=== PATIENT | male | born 1990 | race African-American/Black ===

== ENCOUNTER 2016-05-21 11:15 | Emergency (ER) | payer SELFPAY ==
[2016-05-21] MEDS ORDERED: HYDROmorphone INJ* 1 MG/ML CARPUJECT SYRINGE IV ONE ×2 (11:42→13:07)
[2016-05-21] MEDS ORDERED: NS 0.9% 1000 ML* 1,000 ML IV ONE ×2 (11:42→12:09)
[2016-05-21] MEDS ORDERED: Ondansetron INJ* 2 MG/ML VIAL IV ONE (11:42)
[2016-05-21 11:49] LABS: Hematocrit 47 % (42-52); Hemoglobin 14.9 g/dl (14.0-18.0); Mean Corpuscular HGB Conc 32 g/dl (31-36); Mean Corpuscular Hemoglobin 27 pg (27-31); Mean Corpuscular Volume 86 fL (80-94); Mean Platelet Volume 8 um3 (7.4-10.4); Red Blood Count 5.43 10^6/ul (4.0-5.4); Red Cell Distribution Width 14 % (10.5-15); White Blood Count 17.6 10^3/ul (3.5-10.8)
[2016-05-21 12:05] LABS: ALT 28 U/L (7-52); AST 38 U/L (13-39); Albumin 4.5 g/dL (3.2-5.2); Alkaline Phosphatase 51 U/L (34-104); Anion Gap 10 mmol/L (2-11); BUN/Creatinine Ratio 20.2 (8-20); Blood Urea Nitrogen 19 mg/dL (6-24); C Reactive Protein < 1.00 mg/L (< 5.00); CO2 Carbon Dioxide 23 mmol/L (22-32); Calcium 10.1 mg/dL (8.6-10.3); Chloride 105 mmol/L (101-111); EGFR African American 126.8 (>60); EGFR Non-African American 98.6 (>60); Globulin 3.5 g/dL (2-4); Glucose 173 mg/dL (70-100); Lipase 33 U/L (11.0-82.0); Potassium 3.9 mmol/L (3.5-5.0); Sodium 138 mmol/L (133-145)
[2016-05-21] MEDS ORDERED: LORazepam INJ* 2 MG/ML 1 ML VIAL IV PUSH ONE (13:07)
[2016-05-21 14:31] LABS: Hematocrit 41 % (42-52); Hemoglobin 13.1 g/dl (14.0-18.0); Mean Corpuscular HGB Conc 32 g/dl (31-36); Mean Corpuscular Hemoglobin 28 pg (27-31); Mean Corpuscular Volume 86 fL (80-94); Mean Platelet Volume 8 um3 (7.4-10.4); Red Blood Count 4.72 10^6/ul (4.0-5.4); Red Cell Distribution Width 13 % (10.5-15); White Blood Count 15.9 10^3/ul (3.5-10.8)
--- NOTE | 2016-05-21 14:54 | ED ---
Haris Evans Benjamin, scribed for Eveline Holly MD on 05/21/16 at 1212 . Abdominal Pain/Male - HPI Summary HPI Summary: 25yo male c/o LLQ and umbilical pain along with nausea and vomiting. Pt reports of having similar pain x6 before in the spam of 7 years, each lasting for hours. Zofran helps with his symptoms. Pt is adopted, and has unknown FHx. Smokes marijuana and drinks alcohol occasionally, but no other drug use. - History of Current Complaint Chief Complaint: EDAbdPain Stated Complaint: ABD PAIN Time Seen by Provider: 05/21/16 11:41 Hx Obtained From: Patient, Other: - friend Onset/Duration: Sudden Onset, Lasting Hours, Still Present Severity Initially: Severe Severity Currently: Severe Pain Intensity: 9 Pain Scale Used: 0-10 Numeric Location: Discrete At: LLQ, Umbilical Radiates: No Aggravating Factor(s): Nothing Alleviating Factor(s): Nothing Associated Signs And Symptoms: Positive: Nausea, Vomiting - Allergies/Home Medications Allergies/Adverse Reactions: Allergies Allergy/AdvReac Type Severity Reaction Status Date / Time Morphine Allergy Hives Verified 12/05/15 15:59 PMH/Surg Hx/FS Hx/Imm Hx Endocrine/Hematology History: Denies: Hx Diabetes, Hx Thyroid Disease Cardiovascular History: Denies: Hx Congestive Heart Failure, Hx Hypertension Respiratory History: Reports: Hx Asthma - childhood that has resolved Denies: Hx Chronic Obstructive Pulmonary Disease (COPD) GI History: Denies: Hx Ulcer History: Denies: Hx Renal Disease - Surgical History Surgery Procedure, Year, and Place: MENISCUS SURGERY, HAND SURGERY - Immunization History Date of Tetanus Vaccine: Unk Date of Influenza Vaccine: Unk Infectious Disease History: No Infectious Disease History: Denies: Hx Hepatitis, Hx Human Immunodeficiency Virus (HIV), History Other Infectious Disease, Traveled Outside the US in Last 30 Days - Family History Known Family History: Positive: Cardiac Disease, Hypertension, Diabetes - Social History Lives: With Family Alcohol Use: Rare Substance Use Type: Reports: Marijuana Substance Use Comment - Amount & Last Used: occasional, none today Smoking Status (MU): Current Some Day Smoker Type: Cigarettes Review of Systems Constitutional: Negative Eyes: Negative ENT: Negative Cardiovascular: Negative Respiratory: Negative Positive: Abdominal Pain, Vomiting, Nausea. Negative: Diarrhea Genitourinary: Negative Musculoskeletal: Negative Skin: Negative Neurological: Negative Psychological: Normal All Other Systems Reviewed And Are Negative: Yes Physical Exam Triage Information Reviewed: Yes Vital Signs On Initial Exam: Initial Vitals BP 128/85 05/21/16 11:37 Vital Signs Reviewed: Yes Appearance: Positive: Well-Appearing, Well-Nourished, Pain Distress - moderate Skin: Positive: Warm, Skin Color Reflects Adequate Perfusion, Dry Head/Face: Positive: Normal Head/Face Inspection Eyes: Positive: EOMI, [place] ENT: Positive: Hearing grossly normal, Pharynx normal, TMs normal Neck: Positive: Supple, Nontender Respiratory/Lung Sounds: Positive: Clear to Auscultation, Breath Sounds Present Cardiovascular: Positive: RRR Abdomen Description: Positive: Soft, Other: - diffuse tenderness Bowel Sounds: Positive: Present Musculoskeletal: Positive: Strength/ROM Intact Neurological: Positive: Sensory/Motor Intact, Alert, Oriented to Person Place, Time, CN Intact II-III Psychiatric: Positive: Affect/Mood Appropriate - [place] Coma Scale Coma Scale Total: 15 Diagnostics - Vital Signs Vital Signs Temp Pulse Resp BP Pulse Ox 05/21/16 11:49 20 05/21/16 11:42 98.9 F 62 20 144/89 96 05/21/16 11:39 58 100 05/21/16 11:37 128/85 - Laboratory Lab Results: Lab Results 05/21/16 05/21/16 Range/Units 11:35 11:35 WBC 17.6 H (3.5-10.8) 10^3/ul RBC 5.43 H (4.0-5.4) 10^6/ul Hgb 14.9 (14.0-18.0) g/dl Hct 47 (42-52) % MCV 86 (80-94) fL MCH 27 (27-31) pg MCHC 32 (31-36) g/dl RDW 14 (10.5-15) % Plt Count 289 (150-450) 10^3/ul MPV 8 (7.4-10.4) um3 Neut % (Auto) 90.3 H (38-83) % Lymph % (Auto) 4.4 L (25-47) % Waldo % (Auto) 4.2 (1-9) % Eos % (Auto) 0.6 (0-6) % Baso % (Auto) 0.5 (0-2) % Absolute Neuts (auto) 15.9 H (1.5-7.7) 10^3/ul Absolute Lymphs (auto) 0.8 L (1.0-4.8) 10^3/ul Absolute Monos (auto) 0.7 (0-0.8) 10^3/ul Absolute Eos (auto) 0.1 (0-0.6) 10^3/ul Absolute Basos (auto) 0.1 (0-0.2) 10^3/ul Absolute Nucleated RBC 0 10^3/ul Nucleated RBC % 0 Sodium 138 (133-145) mmol/L Potassium 3.9 (3.5-5.0) mmol/L Chloride 105 (101-111) mmol/L Carbon Dioxide 23 (22-32) mmol/L Anion Gap 10 (2-11) mmol/L BUN 19 (6-24) mg/dL Creatinine 0.94 (0.67-1.17) mg/dL Est GFR ( Amer) 126.8 (>60) Est GFR (Non-Af Amer) 98.6 (>60) BUN/Creatinine Ratio 20.2 H (8-20) Glucose 173 H (70-100) mg/dL Calcium 10.1 (8.6-10.3) mg/dL Total Bilirubin 0.80 (0.2-1.0) mg/dL AST 38 (13-39) U/L ALT 28 (7-52) U/L Alkaline Phosphatase 51 (34-104) U/L Troponin I 0.00 (<0.04) ng/mL C-Reactive Protein < 1.00 (< 5.00) mg/L Total Protein 8.0 (6.4-8.9) g/dL Albumin 4.5 (3.2-5.2) g/dL Globulin 3.5 (2-4) g/dL Albumin/Globulin Ratio 1.3 (1-3) Lipase 33 (11.0-82.0) U/L Result Diagrams: 05/21/16 14:15 05/21/16 11:35 Lab Statement: Any lab studies that have been ordered have been reviewed, and results considered in the medical decision making process. Abdominal Pain Fem Course/Dx - Course Course Of Treatment: 25 yo male who reports 6 x yearly episodes of intractable vomiting, first set of labs with high wbc and lactate, repeated after 2l of fluids and much better. initial abd exam diffuse tenderness now none. Pt feels much better home with meds - Diagnoses Provider Diagnoses: Intractable vomiting Discharge - Discharge Plan Condition: Stable Disposition: HOME The documentation as recorded by the Haris willett Benjamin accurately reflects the service I personally performed and the decisions made by me, Eveline Holly MD.
[2016-05-21 15:12] VITALS: BP 141/87
== END 2016-05-21 15:11 | disposition home or self-care (01) ==
LOC: ED 11:15
DX: R10.9 Unspecified abdominal pain (principal); R11.2 Nausea with vomiting, unspecified; Z72.0 Tobacco use
CPT/HCPCS: 36415; 80053; 83605; 83690; 84484; 85025; 86140; 96374; 96375; 99284; J1170; J2060; J2405

== ENCOUNTER 2017-02-10 16:32 | Inpatient (IN) | payer MEDICAID, OTHER ==
[2017-02-10 17:28] LABS: Urine Bilirubin Negative (Negative); Urine Glucose Negative (Negative); Urine Nitrite Negative (Negative)
[2017-02-10 17:31] LABS: Hematocrit 49 % (42-52); Hemoglobin 16.2 g/dl (14.0-18.0); Mean Corpuscular HGB Conc 33 g/dl (31-36); Mean Corpuscular Hemoglobin 29 pg (27-31); Mean Corpuscular Volume 88 fL (80-94); Mean Platelet Volume 8 um3 (7.4-10.4); Red Blood Count 5.54 10^6/ul (4.0-5.4); Red Cell Distribution Width 12 % (10.5-15); White Blood Count 7.6 10^3/ul (3.5-10.8)
[2017-02-10 17:45] LABS: Benzodiazepine Urine Screen None Detected (None Detect)
[2017-02-10 17:48] LABS: ALT 16 U/L (7-52); AST 18 U/L (13-39); Albumin 4.7 g/dL (3.2-5.2); Alkaline Phosphatase 42 U/L (34-104); Anion Gap 4 mmol/L (2-11); BUN/Creatinine Ratio 13.8 (8-20); Blood Urea Nitrogen 15 mg/dL (6-24); CO2 Carbon Dioxide 31 mmol/L (22-32); Calcium 9.9 mg/dL (8.6-10.3); Chloride 103 mmol/L (101-111); EGFR Non-African American 82.4 (>60); Globulin 3.3 g/dL (2-4); Glucose 77 mg/dL (70-100); Potassium 3.7 mmol/L (3.5-5.0); Sodium 138 mmol/L (133-145)
[2017-02-10 18:09] LABS: Acetaminophen < 15 mcg/mL; Alcohol < 10 mg/dL (<10); Salicylate < 2.50 mg/dL (<30)
[2017-02-10 18:25] LABS: TSH (Thyroid Stimulating Horm) 1.57 mcIU/mL (0.34-5.60)
[2017-02-11] MEDS ORDERED: Al Hydrox/Mg Hydrox/Simet LIQ* 30 ML UDC PO PRN (00:15)
[2017-02-11] MEDS ORDERED: Acetaminophen TAB* 325 MG PO PRN (00:15)
[2017-02-11] MEDS ORDERED: hydrOXYzine HCL TAB* 25 MG PO PRN (00:16)
[2017-02-11] MEDS: Vitamin THERAPEUTIC TAB PO SCH (09:47)
[2017-02-11] MEDS: clonazePAM TAB(*) 0.5 MG PO SCH (17:05)
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
[2017-02-11] MEDS: traZODone TAB* 50 MG TAB PO SCH (20:51)
[2017-02-11] MEDS ORDERED: traZODone TAB* 50 MG TAB PO PRN (21:00)
[2017-02-12] MEDS: clonazePAM TAB(*) 0.5 MG PO SCH ×2 (09:54→16:24)
[2017-02-12] MEDS: DULoxetine DR CAP* 30 MG CAP.DR PO SCH (09:55)
[2017-02-12] MEDS: Vitamin THERAPEUTIC TAB PO SCH (09:55)
--- NOTE | 2017-02-12 12:03 | PN ---
Plan - Plan Treatment Plan: Name: RADAH LORD Birthdate: 1990 [id number] Medications: Current Medications Acetaminophen (Tylenol Tab*) 650 mg PO Q4H PRN PRN Reason: PAIN or TEMP > 101 F Al Hydrox/Mg Hydrox/Simethicone (Maalox Plus*) 30 ml PO Q4H PRN PRN Reason: INDIGESTION Clonazepam (Klonopin Tab(*)) 0.5 mg PO BID@ [facility] Last Admin: 02/12/17 09:54 Dose: 0.5 mg Duloxetine HCl (Cymbalta Cap*) 30 mg PO DAILY [facility] Last Admin: 02/12/17 09:55 Dose: 30 mg Hydroxyzine HCl (Atarax Tab*) 25 mg PO Q6H PRN PRN Reason: ANXIETY Last Admin: 02/11/17 09:47 Dose: 25 mg Multivitamins (Theragran Tab*) 1 tab PO DAILY [facility] Last Admin: 02/12/17 09:55 Dose: 1 tab Trazodone HCl (Desyrel Tab*) 50 mg PO BEDTIME [facility] Last Admin: 02/11/17 20:51 Dose: 50 mg Trazodone HCl (Desyrel Tab*) 50 mg PO BEDTIME PRN PRN Reason: PERSISTENT INSOMNIA
[2017-02-12] MEDS: traZODone TAB* 50 MG TAB PO SCH (21:32)
[2017-02-13 08:59] VITALS: BP 121/62
[2017-02-13] MEDS: DULoxetine DR CAP* 30 MG CAP.DR PO SCH (10:09)
[2017-02-13] MEDS: Vitamin THERAPEUTIC TAB PO SCH (10:09)
[2017-02-13] MEDS: clonazePAM TAB(*) 0.5 MG PO SCH (10:09)
--- NOTE | 2017-02-13 10:57 | DCNOTE ---
Subjective - Subjective Service Types: [id number] Hosp DC Day Mgmt complex over 30 min Discharge Planning - Discharge Planning Medications: Current Medications Acetaminophen (Tylenol Tab*) 650 mg PO Q4H PRN PRN Reason: PAIN or TEMP > 101 F Last Admin: 02/12/17 21:32 Dose: 650 mg Al Hydrox/Mg Hydrox/Simethicone (Maalox Plus*) 30 ml PO Q4H PRN PRN Reason: INDIGESTION Clonazepam (Klonopin Tab(*)) 0.5 mg PO BID@ [facility] Last Admin: 02/13/17 10:09 Dose: 0.5 mg Duloxetine HCl (Cymbalta Cap*) 30 mg PO DAILY [facility] Last Admin: 02/13/17 10:09 Dose: 30 mg Hydroxyzine HCl (Atarax Tab*) 25 mg PO Q6H PRN PRN Reason: ANXIETY Last Admin: 02/11/17 09:47 Dose: 25 mg Multivitamins (Theragran Tab*) 1 tab PO DAILY [facility] Last Admin: 02/13/17 10:09 Dose: 1 tab Trazodone HCl (Desyrel Tab*) 50 mg PO BEDTIME [facility] Last Admin: 02/12/17 21:32 Dose: 50 mg Trazodone HCl (Desyrel Tab*) 50 mg PO BEDTIME PRN PRN Reason: PERSISTENT INSOMNIA Discharge Planning: Prescriptions provided for discharge [] Yes [] No Follow up care details as per social work arrangements. Patient response to discharge plan: [] eager for discharge [] agreeable with discharge plan [] ambivalent about discharge [] disagrees with discharge today
== END 2017-02-13 13:00 | disposition home or self-care (01) | DRG 754 ==
LOC: ED 16:32 → BSU 21:52
PROVIDERS: ADMIT Psychiatry & Neurology Psychiatry; ATTEND Psychiatry & Neurology Psychiatry
DX: F32.9 Major depressive disorder, single episode, unspecified (principal); F41.0 Panic disorder [episodic paroxysmal anxiety]; F43.10 Post-traumatic stress disorder, unspecified; G47.00 Insomnia, unspecified; Z87.820 Personal history of traumatic brain injury
CPT/HCPCS: 36415; 80053; 80307; 80320; 80329; 81003; 84443; 85025; A9270-GY; G0480

== ENCOUNTER 2017-08-25 19:58 | Emergency (ER) | payer MEDICAID, OTHER ==
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
[2017-08-25 23:04] VITALS: BP 134/84
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
== END 2017-08-25 23:04 | disposition home or self-care (01) ==
LOC: ED 19:58
DX: M25.511 Pain in right shoulder (principal); F41.9 Anxiety disorder, unspecified; F43.10 Post-traumatic stress disorder, unspecified; Z87.81 Personal history of (healed) traumatic fracture; Z88.5 Allergy status to narcotic agent; Z72.0 Tobacco use
CPT/HCPCS: 99282

== ENCOUNTER → 2018-01-28 | Emergency (ER) | payer SELFPAY ==
[~2018-01-28] MED LIST: Ketorolac INJ* 30 MG/ML 1 ML VIAL IV ONE; Ondansetron INJ* 2 MG/ML VIAL IV ONE
--- NOTE | 2018-01-28 19:58 | ED ---
Abdominal Pain/Male - HPI Summary HPI Summary: A 27 y/o M presents to ED with c/o diffuse abd pain and most severe in RUQ, onset two days ago. Pt has had intermittent episodes of chronic abd pain since he was 18 years old, without a specific diagnosis. Last recurrence was approx two months ago. His abd pain at onset was beyond 10/10. At bedside, he says the pain fluctuates around 8-9 out of 10. Per partner, pt was cycling vomiting and sleeping for past few days. Associated sx: low-grade fever, weakness, dizziness , nauseous. Denies hematuria, dysuria, testicular pain, hematemesis, diarrhea. Previously, he's taken chewable nausea medicine which helped, but does not remember what it was. (suspect ondansetron) PMHx: ulcers. No previous hx kidney stones. Pt does not have a PCP. Denies daily medications. Vitals at bedside: HR: 78 bpm, BP: 161/89. Home Medications Medication Instructions Recorded Confirmed Type Trazodone HCl 100 mg PO BEDTIME PRN 01/28/18 History - History of Current Complaint Chief Complaint: EDAbdPain Stated Complaint: ABD PAIN/NAUSEA/VOMITING Hx Obtained From: Patient, Family/Title Search Manager - significant other (Anayeli) Onset/Duration: Gradual Onset, Lasting Days - two, Still Present Timing: Constant Severity Initially: Severe Severity Currently: Severe Pain Intensity: 10 Pain Scale Used: 0-10 Numeric Location: Diffuse, Discrete At: RUQ - worse Radiates: No Character: Sharp Aggravating Factor(s): Nothing Alleviating Factor(s): Nothing Associated Signs And Symptoms: Positive: Fever, Dizzy, Nausea, Vomiting, Other - pos:weakness. neg: hematemesis, testicular pain, diarrhea. Negative: Urinary Symptoms - Allergies/Home Medications Allergies/Adverse Reactions: Allergies Allergy/AdvReac Type Severity Reaction Status Date / Time morphine Allergy Hives Verified 01/28/18 17:57 Home Medications: Home Medications Trazodone HCl 100 mg PO BEDTIME PRN 01/28/18 [History Confirmed 01/28/18] PMH/Surg Hx/FS Hx/Imm Hx Previously Healthy: No - insomnia Endocrine/Hematology History: Denies: Hx Anticoagulant Therapy, Hx Blood Disorders, Hx Diabetes, Hx Thyroid Disease, Hx Unexplained Bleeding Cardiovascular History: Denies: Hx Congestive Heart Failure, Hx Hypertension Respiratory History: Reports: Hx Asthma - childhood that has resolved Denies: Hx Chronic Obstructive Pulmonary Disease (COPD) GI History: Denies: Hx Ulcer History: Denies: Hx Renal Disease Musculoskeletal History: Denies: Hx Arthritis, Hx Back Problems Sensory History: Denies: Hx Contacts or Glasses, Hx Hearing Aid Opthamlomology History: Denies: Hx Contacts or Glasses Neurological History: Reports: Other Neuro Impairments/Disorders - TBI twice, 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 Psychiatric History: Reports: Hx Anxiety, Hx Post Traumatic Stress Disorder Denies: Hx Eating Disorder, Hx of Violent Episodes Against Others - Surgical History Surgery Procedure, Year, and Place: MENISCUS SURGERY, HAND SURGERY - Immunization History Date of Tetanus Vaccine: Unk Date of Influenza Vaccine: Unk Infectious Disease History: No Infectious Disease History: Denies: Hx Hepatitis, Hx Human Immunodeficiency Virus (HIV), History Other Infectious Disease, Traveled Outside the [place] in Last 30 Days - Family History Known Family History: Positive: Unknown - Adopted / foster care system - Social History Lives: Alone Alcohol Use: Rare Hx Substance Use: Yes Substance Use Type: Reports: Marijuana Substance Use Comment - Amount & Last Used: occasional Hx Tobacco Use: Yes Smoking Status (MU): Current Some Day Smoker Type: Cigarettes Amount Used/How Often: has used tobacco products in the last 30 days Review of Systems Positive: Fever ENT: Negative Cardiovascular: Negative Respiratory: Negative Positive: Abdominal Pain, Vomiting, Other - neg: hematemesis. Negative: Nausea Positive: other - neg: testicular pain. Negative: dysuria, hematuria Musculoskeletal: Negative Skin: Negative Neurological: Other - pos: dizziness Positive: Weakness Psychological: Normal All Other Systems Reviewed And Are Negative: Yes Physical Exam - Summary Physical Exam Summary: Appearance: Well-appearing, severe pain distress, thin Skin: Warm, color reflects adequate perfusion, dry Head: Normal Head/Face inspection, atraumatic Eyes: Conjunctiva clear ENT: Normal inspection Neck: Supple, no nodes, no JVD Respiratory: Lungs clear, normal breath sounds, no respiratory distress Cardio: RRR, No murmur, pulses normal, brisk capillary refill Abdomen: Soft, tenderness to RUQ, wretching, non distended, no masses, no guarding, no rebound Bowel sounds: Present and distant Musculoskeletal: Strength Intact/ROM intact, no calf tenderness, no edema. Psychological: Normal Neuro: Alert, muscle tone normal, no focal deficit Triage Information Reviewed: Yes Vital Signs On Initial Exam: Initial Vitals Temp Pulse Resp BP Pulse Ox 100.6 F 73 18 120/77 100 01/28/18 17:52 01/28/18 17:52 01/28/18 17:52 01/28/18 17:52 01/28/18 17:52 Vital Signs Reviewed: Yes Diagnostics - Vital Signs Vital Signs Temp Pulse Resp BP Pulse Ox 01/28/18 19:55 99.9 F 01/28/18 17:52 100.6 F 73 18 120/77 100 - Laboratory Result Diagrams: 01/28/18 20:34 01/28/18 20:34 Lab Statement: Any lab studies that have been ordered have been reviewed, and results considered in the medical decision making process. - Radiology CXR Radiology Interpretation Completed By: ED Physician Summary of Radiographic Findings: NAD. - Ultrasound No standard instances Ultrasound Interpretation Completed By: Radiologist Summary of Ultrasound Findings: IMPRESSION: No sonographic findings to correlate with patient's symptomatology. ED provider has reviewed this report. - EKG 2028 Cardiac Rate: NL - 64bpm EKG Rhythm: Sinus Rhythm EKG Comparison: No Significant Change - from 09/01/09. Summary of EKG Findings: Normal ACVT, prolonged IVCT (non-specific 113), prolonged QTc (574). No significant change from EKG on 09/01/09. Re-Evaluation - Re-Evaluation First Eval Re-Evaluation Time: 22:50 Change: Improved Comment: Pt states pain is almost gone. Lying comfortably on the stretcher. No further vomiting or wretching in the ED. Discussed diff dx and follow up. Given lab and US results. Abdominal Pain Fem Course/Dx - Course Course Of Treatment: Pt is a 27 y/o M presenting with diffuse abd pain and worst in RUQ onset two days ago. PMHx: chronic abd pain since 18 y/o. Associated sx: vomiting, low-grade fever, weakness, dizziness, nauseous. Denies hematuria, dysuria, testicular pain, hematemesis. Gallbladder U/S was showed no acute findings. CXR shows no acute dz. EKG shows NSR with normal ACVT, prolonged IVCT (non-specific 113), prolonged QTc (574). Lab results show Neut % is elevated; INR: 1.06; Glucose 105; depressed Potassium and CO2. Pt given fluids, toradol and zofran in ED. Allergies noted. Pt medications reviewed this visit. Pt is discharged with an RX for zofran ODT, and advised to get established with a PCP and to use [facility] if needed. Pt asks for a diet for gastritis, so it is provided. - Diagnoses Differential Diagnosis/HQI/PQRI: Appendicitis, Gall Bladder Disease, Pancreatitis, Ureteral Stone, Other - cyclic vomiting syndrome, cannabis hyperemesis Provider Diagnoses: Tobacco abuse disorder, Epigastric abdominal pain, Hematuria, microscopic, [place] syndrome, Vomiting alone, Prolonged QT interval syndrome Discharge - Sign-Out/Discharge Documenting (check all that apply): Patient Departure - DC - Discharge Plan Condition: Stable Disposition: HOME Prescriptions: Ondansetron ODT TAB* [Zofran 4 MG Odt TAB*] 4 mg PO Q6H PRN #12 tab.odt PRN Reason: Vomiting Patient Education Materials: Diet for Stomach Ulcers and Gastritis (ED), Acute Abdominal Pain (ED), Epigastric Pain (ED) Referrals: [facility] [Outside] - 1 Day [facility] PHYSICIAN REFERRAL [Outside] - As Soon As Possible Additional Instructions: Your tests tonight did not show any serious abnormalities. You should follow up with the [facility] and the [facility] referral number to get established with a primary care provider for further evaluation as needed. Return to the ER if you have any new or worsening symptoms. - Billing Disposition and Condition Condition: STABLE Disposition: Home - Attestation Statements Document Initiated by Pattie: Yes Documenting Scribe: Rosa Lindo Provider For Whom Pattie is Documenting (Include Credential): Dr. Hodan Cifuentes MD Scribe Attestation: Rosa Evans, scribed for Dr. Hodan Cifuentes MD on 02/02/18 at 2236. Scribe Documentation Reviewed: Yes Provider Attestation: The documentation as recorded by the Rosa willett accurately reflects the service I personally performed and the decisions made by me, Dr. Hodan Cifuentes MD
[2018-01-28 20:44] LABS: ABS Basophils 0 10^3/ul (0-0.2); ABS Eosinophils 0 10^3/ul (0-0.6); ABS Lymphocytes 0.6 10^3/ul (1.0-4.8); ABS Monocytes 0.8 10^3/ul (0-0.8); ABS Neutrophils 9.3 10^3/ul (1.5-7.7); ABS Nucleated RBC 0 10^3/ul; Eosinophil % 0.1 % (0-6); Hematocrit 46 % (42-52); Hemoglobin 15.7 g/dl (14.0-18.0); Lymphocyte % 5.3 % (25-47); Mean Corpuscular HGB Conc 34 g/dl (31-36); Mean Corpuscular Hemoglobin 30 pg (27-31); Mean Corpuscular Volume 88 fL (80-94); Nucleated Red Blood Cells % 0.1; Platelet Count 243 10^3/ul (150-450); Red Blood Count 5.24 10^6/ul (4.00-5.40); Red Cell Distribution Width 12 % (10.5-15); White Blood Count 10.6 10^3/ul (3.5-10.8)
--- NOTE | 2018-01-28 20:49 | RAD ---
EXAM: US Abdomen Limited, Right Upper Quadrant EXAM DATE/TIME: 01/28/2018 8:36 PM CLINICAL HISTORY: 27 years old, male; Pain and signs and symptoms; Vomiting; Abdominal pain; Generalized; Additional info: Ruq pain TECHNIQUE: Real-time ultrasound of the abdomen with image documentation. Examination was focused on the right upper quadrant. COMPARISON: GB US GALL BLADDER 01/25/2013 9:13 PM FINDINGS: Liver: Normal liver echogenicity and size with no focal lesions. Normal hepatopetal portal vein flow. Gallbladder: No gallstones, wall thickening, pericholecystic fluid, or sonographic Vaughn's sign. Common bile duct: CBD measures 0.3 cm. Pancreas: No pancreatic ductal dilation or focal lesions. Right kidney: Right kidney measures 9.0 x 4.9 x 4.0 cm (92 cc). No solid cortical lesions, calculi, or pelvocaliectasis. Aorta: Nonobstructive normal caliber aorta. Inferior vena cava: Patent IVC. IMPRESSION: No sonographic findings to correlate with patient's symptomatology. To contact [facility] with a general question: Operations Center - [phone] For direct physician to physician contact: Physician Hotline - [phone] [facility] ([facility] Facility ID #[id number])
[2018-01-28 20:50] LABS: INR 1.06 (0.77-1.02)
[2018-01-28 21:02] LABS: EGFR Non-African American 89.3 (>60)
[2018-01-28] MEDS: NS 0.9% 1000 ML* 2,000 ML IV SCH ×2 (21:08→21:09)
[2018-01-28 23:10] LABS: Urine Appearance Cloudy; Urine Blood Negative (Negative); Urine Color Yellow; Urine Ketones 2+ (Negative); Urine Protein 1+(30 mg/dL) (Negative); Urine Red Blood Cell 3+(>10/hpf) (Absent); Urine Specific Gravity 1.032 (1.010-1.030); Urine Urobilinogen Negative (Negative); Urine White Blood Cell Trace(0-5/hpf) (Absent)
[2018-01-29 00:04] VITALS: BP 145/86
--- NOTE | 2018-01-29 07:58 | RAD ---
HISTORY: abd pain, vomiting COMPARISONS: September 01, 2009 VIEWS: 1: frontal AP view of the chest at 8:45 PM FINDINGS: LINES AND TUBES: None. CARDIOMEDIASTINAL SILHOUETTE: The cardiomediastinal silhouette is normal for portable technique. PLEURA: The costophrenic angles are sharp. No pleural abnormalities are noted. LUNG PARENCHYMA: The lungs are clear. ABDOMEN: The upper abdomen is clear. There is no subphrenic gas. BONES AND SOFT TISSUES: No bone or soft tissue abnormalities are noted. IMPRESSION: NO ACTIVE CARDIOPULMONARY DISEASE. R0
== END | disposition home or self-care (01) ==
LOC: ED 17:41
DX: R10.13 Epigastric pain (principal); R31.29 Other microscopic hematuria; E80.4 Gilbert syndrome; Z88.5 Allergy status to narcotic agent; Z72.0 Tobacco use
CPT/HCPCS: 36415; 71045; 76705; 80053; 81003; 81015; 82150; 82550; 83605; 83690; 83735; 84484; 85025; 85610; 86140; 87077; 87086; 93005; 96361; 96374; 96375; 99283; J1885; J2405

== ENCOUNTER 2018-03-02 14:41 | Emergency (ER) | payer OTHER ==
--- OUTSIDE RECORDS SUMMARY | 2018-03-02 14:53 | XMS REPORT ---
:1990 External Reference #:[id number] Author Organization [employer] Address [address] [place] [id number] Phone [phone] Care Team Providers Name Role Phone Bria Godinez DO Care Team Information Field Health Officer Unavailable Payers Type Date Identification Numbers Payment Provider Subscriber Commercial PayID: [id number] Juanpabloneil Galvez [address] [place] [address] Problems Description No Information Family History Date Family Member(s) Problem(s) Comments Siblings None Social History Type Date Description Comments Marital Status Single Lives With Alone Occupation Unemployed ETOH Use Currently consumes alcohol ETOH Use Currently consumes alcohol almost every weekend Smoking Patient was a smoker, current status is unknown Recreational Drug Use Denies Drug Use Smoking Smoker, sometimes depends on the day Daily Caffeine Consumes on average 1 liter of iced tea per day Exercise Type/Frequency Exercises regularly Allergies, Adverse Reactions, Alerts Date Description Reaction Status Severity Comments 02/02/2018 Morphine active 02/02/2018 Seasonal active Medications Medication Date Status Form Strength Qnty SIG Indications Ordering Provider Omeprazole Active Capsules DR 20mg 30caps 1 by G43.A0 Bria 018 mouth DO Herbert every day No Active Hx Unknown Medications 018 - 018 Vital Signs Date Vital Result Comment 02/02/2018 Height 71.5 inches 5'11.50" Weight 146.50 lb Heart Rate 68 /min BP Systolic 128 mmHg BP Diastolic 72 mmHg Body Temperature 98.0 F BMI (Body Mass Index) 20.1 kg/m2 Results Description No Information Procedures Description No Information Plan of Care Future Appointment(s):03/08/2018 11:40 am - Bria Godinez DO at [facility]02/02/2018 - Bria Senner, DOG43.A0 Cyclical vomiting , not intractableNew Medication:Omeprazole 20 mgNew Xrays:NM Gastric Emptying StudyFollow up:come back in a domceS42.1 Generalized anxiety disorder
[2018-03-02 15:05] VITALS: BP 110/71
--- NOTE | 2018-03-02 15:06 | UC ---
Throat Pain/Nasal Gutierrez HPI - HPI Summary HPI Summary: 27 yo male presents with sore throat. He tells me that over the past 2 weeks he has had a sore throat. About 1 week ago his friend was dx'd with strep and prescribed augmentin - pt took two pills of this and felt better for a few days , but his sore throat has returned. Pain with swallowing. He is able to eat and drinking. Denies fever, chills, sinus symptoms, cough, SOB, chest pain, n/v. - History of Current Complaint Chief Complaint: UCRespiratory Stated Complaint: SORE THROAT, AND SINUS CONGESTION Time Seen by Provider: 03/02/18 15:06 Hx Obtained From: Patient Onset/Duration: Gradual Onset Severity: Severe Pain Intensity: 10 Pain Scale Used: 0-10 Numeric - Allergies/Home Medications Allergies/Adverse Reactions: Allergies Allergy/AdvReac Type Severity Reaction Status Date / Time morphine Allergy Hives Verified 03/02/18 15:05 Home Medications: Home Medications Homeopathic 1 drop PO DAILY 03/02/18 [History] clonazePAM [Klonopin] 0.5 mg PO DAILY PRN 03/02/18 [History Confirmed 03/02/18] PMH/Surg Hx/FS Hx/Imm Hx Psychological History: Anxiety, Post Traumatic Stress Disorder Other History Of: Negative For: Anticoagulant Therapy - Surgical History Surgical History: Yes Surgery Procedure, Year, and Place: MENISCUS SURGERY, HAND SURGERY - Family History Known Family History: Positive: Cardiac Disease, Hypertension, Diabetes - Social History Occupation: Employed Full-time Lives: With Family Alcohol Use: Occasionally Substance Use Type: Marijuana Substance Use Comment - Amount & Last Used: occasional Smoking Status (MU): Light Every Day Tobacco Smoker Type: Cigarettes Amount Used/How Often: has used tobacco products in the last 30 days Have You Smoked in the Last Year: Yes - Pt uses mariuana wrapped around tobacco - Immunization History Most Recent Influenza Vaccination: unk Most Recent Pneumonia Vaccination: up to date Review of Systems All Other Systems Reviewed And Are Negative: Yes Constitutional: Positive: Negative Skin: Positive: Negative Eyes: Positive: Negative ENT: Positive: Sore Throat Respiratory: Positive: Negative Cardiovascular: Positive: Negative Gastrointestinal: Positive: Negative Neurovascular: Positive: Negative Neurological: Positive: Negative Psychological: Positive: Negative Physical Exam - Summary Physical Exam Summary: GENERAL: NAD. WDWN. No pain distress. SKIN: No rashes, sores, lesions, or open wounds. HEENT: Head: AT/NC Eyes: Conjunctiva clear without inflammation or discharge. Ears: Hearing grossly normal. TMs intact, no bulging, erythema, or edema. Nose: Nasal mucosa pink and moist. NTTP maxillary and frontal sinus. Throat: Posterior oropharynx moderate erythema and 2+ tonsillar enlargement. No exudates. Uvula midline. No hoarse voice or muffled voice. NECK: Supple. Mild TTP tonsillar LAD. CHEST: CTAB. No r/r/w. No accessory muscle use. Breathing comfortably and in no distress. CV: RRR. Without m/r/g. Pulses intact. Cap refill <2seconds NEURO: Alert. PSYCH: Age appropriate behavior. Triage Information Reviewed: Yes Vital Signs: Initial Vital Signs Temp 98.4 F 03/02/18 14:56 Pulse 83 03/02/18 14:56 Resp 18 03/02/18 14:56 BP 110/71 03/02/18 14:56 Pulse Ox 99 03/02/18 14:56 Laboratory Tests 03/02/18 15:23 Group A Strep Rapid Positive A Vital Signs Reviewed: Yes Throat Pain/Nasal Course/Dx - Course Course Of Treatment: POC strep positive. Given that he has already taken two doses of augmentin, will rx for this. - Differential Dx/Diagnosis Provider Diagnosis: Strep pharyngitis Discharge - Sign-Out/Discharge Documenting (check all that apply): Patient Departure All imaging exams completed and their final reports reviewed: No Studies - Discharge Plan Condition: Stable Disposition: HOME Prescriptions: Amoxicillin/Clavulanate TAB* [Augmentin TAB 875*] 875 mg PO BID #20 tab Lidocaine 2% VISCOUS* [Xylocaine 2% Viscous*] 15 ml SWISH SWAL Q6H PRN #250 ml PRN Reason: Pain Patient Education Materials: Strep Throat (DC) Referrals: No Primary Care Phys,NOPCP [Primary Care Provider] - Additional Instructions: If you develop a fever, shortness of breath, chest pain, new or worsening symptoms - please call your PCP or go to the ED. - Billing Disposition and Condition Condition: STABLE Disposition: Home
== END 2018-03-02 15:44 | disposition home or self-care (01) ==
LOC: UCEAST 14:41
DX: J02.0 Streptococcal pharyngitis (principal); Z88.5 Allergy status to narcotic agent; F17.210 Nicotine dependence, cigarettes, uncomplicated
CPT/HCPCS: 87651; 99212; G0463

== ENCOUNTER 2018-03-18 15:23 | Emergency (ER) | payer OTHER ==
--- OUTSIDE RECORDS SUMMARY | 2018-03-18 15:34 | XMS REPORT | Continuity of Care Document ---
:1990 External Reference #:[id number] Author Name Lizbet Patten Care Team Providers Name Role Phone Raul Lyons MD Care Team Information Ticketing Clerk Unavailable [facility] Primary Care Physician Unavailable Payers Type Date Identification Numbers Payment Provider Subscriber Policy Number: [id number] [place] Tyler Perez PayID: [id number] [address] [address] [place] [address] Advance Directives Description No Information Available Problems Description No Information Family History Date Family Member(s) Problem(s) Comments Siblings None Social History Type Date Description Comments Sex Unknown Marital Status Single Lives With Alone Occupation Unemployed ETOH Use Currently consumes alcohol ETOH Use Currently consumes almost every alcohol weekend Recreational Drug Use Denies Drug Use Tobacco Use Start: Unknown Patient has never smoked Smoking Status Reviewed: 03/11/18 Patient has never smoked Exercise Type/Frequency Exercises regularly Allergies, Adverse Reactions, Alerts Date Description Reaction Status Severity Comments 02/02/2018 Morphine Active 02/02/2018 Seasonal Active Medications Medication Date Status Form Strength Qnty SIG Indications Ordering Provider Remeron Active Tablets 15mg 30tabs take one F41.1 Bria 018 tablet Senner, DO before bed Bentyl Active Capsules 10mg 30caps 1 by mouth F41.1 Bria 018 four times Senner, DO a day Clonazepam Active Tablets 0.5mg 14tabs by mouth Bria 018 twice a Senner, DO day as needed for anxiety. do not combine with alcohol. Omeprazole Active Capsules 20mg 30caps 1 by mouth G43.A[address] every day Senner, DO Maxalt Active Tablets 5mg 6tabs one po at [facility]. 009 start of Mirtha, migraine M.D. headache, may repeat if needed q 2 hours up to three doses in 24 hours Amoxicillin 00/00/0 Active Tablets 875mg 1 tab bid Unknown 000 X 10 days No Active Hx Unknown Medications 018 - 018 Immunizations Description No Information Available Vital Signs Date Vital Result Comment 03/11/2018 1:13pm Weight 141.00 lb Heart Rate 76 /min BP Systolic 132 mmHg BP Diastolic 78 mmHg Respiratory Rate 16 /min Body Temperature 99.1 F Pain Level 4 O2 % BldC Oximetry 99 % 02/02/2018 2:11pm Height 71.5 inches 5'11.50" Weight 146.50 lb Heart Rate 68 /min BP Systolic 128 mmHg BP Diastolic 72 mmHg Body Temperature 98.0 F BMI (Body Mass Index) 20.1 kg/m2 08/12/2011 1:47pm Height 71 inches 5'11" Weight 140.00 lb Heart Rate 62 /min BP Systolic 130 mmHg BP Diastolic 78 mmHg BMI (Body Mass Index) 19.5 kg/m2 Results Test Date Facility Test Result H/L Range Note Xray 03/11/2018 [facility] US Renal <pending> [address] [place] [address] [phone] Comp Metabolic 02/02/2018 [facility] Sodium 140 mmol/L N 135- [address] [place] [address] [phone] Potassium 4.0 mmol/L N 3.5-5.0 Chloride 104 mmol/L N 101-111 Co2 Carbon Dioxide 30 mmol/L N 22-32 Anion Gap 6 mmol/L N 2-11 Glucose 105 mg/dL High 70-100 Blood Urea Nitrogen 12 mg/dL N 6-24 Creatinine 1.04 mg/dL N 0.67-1.17 BUN/Creatinine Ratio 11.5 N 8-20 Calcium 9.9 mg/dL N 8.6-10.3 Total Protein 6.8 g/dL N 6.4-8.9 Albumin 4.4 g/dL N 3.2-5.2 Globulin 2.4 g/dL N 2-4 Albumin/Globulin Ratio 1.8 N 1-3 Total Bilirubin 0.60 mg/dL N 0.2-1.0 Alkaline Phosphatase 49 U/L N 34-104 Alt 20 U/L N 7-52 Ast 22 U/L N 13-39 Egfr Non- 86.3 >60 Egfr 104.5 >60 1 Hepatitis C Antibody 02/02/2018 [facility] HCV Index < 0.[address] [place] [address] [phone] Hepatitis C Antibody Nonreactive Nonreactive HIV 1&2 AB 02/02/2018 [facility] HIV 1 2 Nonreactive Nonreactive 2 W/Prelim [address] [place] [address] [phone] 1 Because ethnic data is not always readily available, this report includes an eGFR for both -Americans and non- Americans. The National Kidney Disease Education Program (NKDEP) does not endorse the use of the MDRD equation for patients that are not between the ages of 18 and 70, are , have extremes of body size, muscle mass, or nutritional status, or are non- or non-. According to the National Kidney Foundation, irrespective of diagnosis, the stage of the disease is based on the level of kidney function: Stage Description GFR(mL/min/1.73 m(2)) 1 Kidney damage with normal or decreased GFR 90 2 Kidney damage with mild decrease in GFR 60-89 3 Moderate decrease in GFR 30-59 4 Severe decrease in GFR 15-29 5 Kidney failure <15 (or dialysis) 2 It is recognized that currently available assays for the detection of antibodies to HIV-1 and/or HIV-2 may not detect all infected individuals. HIV antibodies may be undetectable in some stages of the infection and in some clinical conditions. The performance of this assay has not been established for populations of infants or children. Assayed by Chemiluminescence Microparticle Immunoassay on the Siemens Advia Centaur CP. Values obtained with different methods or kits cannot be used interchangeably.The diagnostic specificity of the ADVIA Centaur 1/O/2 Enhanced assay in the low risk population was 99.90% (6052/6058) with a 95% confidence interval of 99.78 to 99.96%. Procedures Description No Information Available Encounters Type Date Location Provider Dx Diagnosis Office Visit 02/02/2018 [facility] Bria Godinez, G43.A0 Cyclical vomiting, 1:40p [facility] Techn[facility] DO not intractable F41.1 Generalized anxiety disorder [facility] Bil[facility] Emesis 6:32p Assoc,gema Agrawal M.D. Hospitalists Office Visit 08/12/2011 Orthopedic Kimosushma Wong, 831.09 Dislocation 1:00p Services Of Fredy Meraz Shoulder Closed Other Office Visit 05/07/2009 Neurosurgery Micky Chamorro 310.2 Postconcussion 10:40a [facility] Jaye Shannon M.D. Syndrome Office Visit 03/20/2009 Neurosurgery Micky Chamorro 310.2 Postconcussion 3:20p [facility] Jaye Shannon M.D. Syndrome Office Visit 02/08/2009 Neurosurgery Micky Peñaloza.2 Postconcussion 1:00p [facility] Of Jaye Shannon M.D. Syndrome Office Visit 01/16/2009 Neurosurgery Micky Peñaloza.2 Postconcussion 12:00p Services Of Jaye Shannon M.D. Syndrome Office Visit 01/09/2009 Neurosurgery Micky Peñaloza.2 Postconcussion 12:40p Services Of Jaye Shannon M.D. Syndrome Plan of Treatment Future Appointment(s):04/26/2018 1:00 pm - Bria Godinez DO at [facility]03/11/2018 - Bria Godinez DOF41.1 Generalized anxiety disorderNew Medication:Remeron 15 mg - take one tablet before bedBentyl 10 mg - 1 by mouth four times a dayReferral:[facility], Mental Health/CounselorRecommendations:Call [facility] at for reiki or acupuncture or energy work.R31.21 Asymptomatic microscopic hematuria
--- OUTSIDE RECORDS SUMMARY | 2018-03-18 15:34 | XMS REPORT | Continuity of Care Document ---
:1990 External Reference #:[id number] Author Name Lizbet Patten Care Team Providers Name Role Phone Raul Lyons MD Care Team Information Naprapath Unavailable Care Connections Primary Care Physician Unavailable Payers Type Date Identification Numbers Payment Provider Subscriber Policy Number: [id number] [employer] Tyler Perez PayID: [id number] [address] [address] [place] [address] Advance Directives Description No Information Available Problems [...] 018 four times Senner, DO a day Omeprazole Active Capsules 20mg 30caps 1 by mouth G43.A0 Bria 018 every day Senner, DO Maxalt Active Tablets 5mg 6tabs one po at Micky J. 009 start of Mirtha, migraine M.D. headache, [...] Test Result H/L Range Note Xray 03/11/2018 [facility] US Renal <pending> [address] [place] [address] [phone] Comp Metabolic 02/02/2018 [facility] Sodium 140 mmol/L N 135- [address] [place] [address] [phone] Potassium 4.0 mmol/L N 3.5-5.0 Chloride 104 [...] 104.5 >60 1 Hepatitis C Antibody 02/02/2018 [facility] HCV Index < 0.[address] [place], [place] [id number] [phone] Hepatitis C Antibody Nonreactive Nonreactive HIV 1&2 AB 02/02/2018 [facility] HIV 1 2 Nonreactive Nonreactive 2 W/Prelim [address] Antibody Results [place], [place] [id number] [phone] 1 Because ethnic data is not always [...] Godinez, G43.A0 Cyclical vomiting, 1:40p [facility] Commentator DO not intractable F41.1 Generalized anxiety disorder Office Visit 12/06/2012 [facility] Jesus 787.04 Bilious Emesis 6:32p Assoc,gema Agrawal M.D. Hospitalists Office Visit 08/12/2011 Orthopedic Kimo Wong, 831.09 Dislocation 1:00p Services Of Fredy Meraz Shoulder Closed Other Office Visit 05/07/2009 Neurosurgery Micky Chamorro 310.2 Postconcussion 10:40a Services Of Jaye Shannon M.D. Syndrome Office Visit 03/20/2009 Sylvia Peñaloza.2 Postconcussion 3:20p Services Of Jaye Shannon M.D. Syndrome Office Visit 02/08/2009 Neurosurgery Micky Chamorro 310.2 Postconcussion 1:00p Services Of Jaye Shannon M.D. Syndrome Office Visit 01/16/2009 Neurosurgery Micky Peñaloza.2 Postconcussion 12:00p Services Of Jaye Shannon M.D. Syndrome Office Visit 01/09/2009 Neurosurgery Micky Peñaloza.2 Postconcussion 12:40p Services Of Jaye Shannon M.D. Syndrome Plan of Treatment Future Appointment(s):04/26/2018 1:00 pm - Bria Godinez DO [facility]03/11/2018 - Bria Godinez DOF41.1 Generalized anxiety disorderNew Medication:Remeron 15 mg - take one tablet before bedBentyl 10 mg - 1 by mouth four times a dayReferral:[facility], Mental Health/CounselorRecommendations:Call [facility] at for reiki or acupuncture or energy work.R31.21 Asymptomatic microscopic hematuria
--- OUTSIDE RECORDS SUMMARY | 2018-03-18 15:34 | XMS REPORT | Continuity of Care Document ---
:1990 External Reference #:[id number] Author Name Lizbet Patten Care Team Providers Name Role Phone Raul Lyons MD Care Team Information Disability Benefits Specialist Unavailable Care Connections Primary Care Physician Unavailable Payers Type Date Identification Numbers Payment Provider Subscriber Policy Number: [id number] [employer] Tyler Perez PayID: [id number] [address] [address] [place] [address] Advance Directives Description No Information Available Problems [...] Test Result H/L Range Note Xray 03/11/2018 [facility] US Renal <pending> [address] [place] [address] [phone] Comp Metabolic 02/02/2018 [facility] Sodium 140 mmol/L N 135- [address] [place] [address] [phone] Potassium 4.0 mmol/L N 3.5-5.0 Chloride 104 [...] 104.5 >60 1 Hepatitis C Antibody 02/02/2018 [facility] HCV Index < 0.[address] [place], [place] [id number] [phone] Hepatitis C Antibody Nonreactive Nonreactive HIV 1&2 AB 02/02/2018 [facility] HIV 1 2 Nonreactive Nonreactive 2 W/Prelim [address] Antibody Results [place], [place] [address] [phone] 1 Because ethnic data is not always [...] Godinez, G43.A0 Cyclical vomiting, 1:40p [facility] Course Coordinator DO not intractable F41.1 Generalized anxiety disorder Office Visit 12/06/2012 [facility] Jesus 787.04 Bilious Emesis 6:32p Assoc,gema Agrawal M.D. Hospitalists Office Visit 08/12/2011 Orthopedic Kimo Wong, 831.09 Dislocation 1:00p Services Of Fredy Meraz Shoulder Closed Other Office Visit 05/07/2009 Neurosurgery Micky Chamorro 310.2 Postconcussion 10:40a Services Of Jaye Shannon M.D. Syndrome Office Visit 03/20/2009 Sylvia Peñaloza.2 Postconcussion 3:20p Services Of Jaye Shannon M.D. Syndrome Office Visit 02/08/2009 Neurosurgery Mciky Chamorro 310.2 Postconcussion 1:00p Services Of Jaye Shannon M.D. Syndrome Office Visit 01/16/2009 Neurosurgery Micky Peñaloza.2 Postconcussion 12:00p Services Of Jaye Shannon M.D. Syndrome Office Visit 01/09/2009 Neurosurgery Micky Peñaloza.2 Postconcussion 12:40p Services Of Jaye Shannon M.D. Syndrome Plan of Treatment Future Appointment(s):04/26/2018 1:00 pm - Bria Godinez DO [facility]03/11/2018 - Bria Godinez DOF41.1 Generalized anxiety disorderNew Medication:Remeron 15 mg - take one tablet before bedBentyl 10 mg - 1 by mouth four times a dayReferral:[facility] Mental Health, Mental Health/CounselorRecommendations:Call [facility] at [phone] for reiki or acupuncture or energy work.R31.21 Asymptomatic microscopic hematuria
[2018-03-18] MEDS ORDERED: Metoclopramide IV* 5 MG/ML 2 ML VIAL IV ONE (16:08)
[2018-03-18] MEDS ORDERED: LORazepam INJ* 2 MG/ML 1 ML VIAL IV ONE (16:08)
[2018-03-18] MEDS ORDERED: NS 0.9% 1000 ML* 1,000 ML IV ONE (16:09)
--- NOTE | 2018-03-18 16:13 | ED ---
GI/ HPI - HPI Summary HPI Summary: A 27 y/o male brought in by [facility] ambulance presents to [facility] with a chief complaint of vomiting since 03/14/18. The patient also c/o nausea, diarrhea and abd pain. He rates his pain as 10/10. He was seen by his PCP and given medication, but his pain is still presents. He states he has had similar symptoms before, but this time his symptoms or worse with hematemesis since 13: 00 03/18/18. The patient claims that he was fine in the morning. He admits to EtOH use on 03/17/18. - History of Current Complaint Chief Complaint: EDAbdPain Time Seen by Provider: 03/18/18 15:41 Stated Complaint: vomiting Hx Obtained From: Patient Onset/Duration: Started Days Ago, Still Present Timing: Constant Severity: Severe Current Severity: Severe Pain Intensity: 10 - out of 10 Location of Pain: Diffuse Pain Characteristics: Unable to describe Associated Signs and Symptoms: Positive: Hematemesis, Nausea, Diarrhea, Abdominal Pain - Additional Pertinent History Primary Care Physician: KAIN - Allergy/Home Medications Allergies/Adverse Reactions: Allergies Allergy/AdvReac Type Severity Reaction Status Date / Time morphine Allergy Hives Verified 03/02/18 15:05 PMH/Surg Hx/FS Hx/Imm Hx Endocrine/Hematology History: Denies: Hx Anticoagulant Therapy, Hx Blood Disorders, Hx Diabetes, Hx Thyroid Disease, Hx Unexplained Bleeding Cardiovascular History: Denies: Hx Congestive Heart Failure, Hx Hypertension Respiratory History: Reports: Hx Asthma - childhood that has resolved Denies: Hx Chronic Obstructive Pulmonary Disease (COPD) GI History: Denies: Hx Ulcer History: Denies: Hx Renal Disease Musculoskeletal History: Denies: Hx Arthritis, Hx Back Problems Sensory History: Denies: Hx Contacts or Glasses, Hx Hearing Aid Opthamlomology History: Denies: Hx Contacts or Glasses Neurological History: Reports: Other Neuro Impairments/Disorders - TBI twice, 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 Psychiatric History: Reports: Hx Anxiety, Hx Post Traumatic Stress Disorder Denies: Hx Eating Disorder, Hx of Violent Episodes Against Others - Surgical History Surgery Procedure, Year, and Place: MENISCUS SURGERY, HAND SURGERY - Immunization History Date of Tetanus Vaccine: Unk Date of Influenza Vaccine: Unk Infectious Disease History: No Infectious Disease History: Denies: Hx Hepatitis, Hx Human Immunodeficiency Virus (HIV), History Other Infectious Disease, Traveled Outside the [place] in Last 30 Days - Family History Known Family History: Positive: Unknown - Adopted / foster care system, Cardiac Disease, Hypertension, Diabetes - Social History Alcohol Use: Occasionally Hx Substance Use: Yes Substance Use Type: Reports: Marijuana Substance Use Comment - Amount & Last Used: occasional Hx Tobacco Use: Yes Smoking Status (MU): Light Every Day Tobacco Smoker Type: Cigarettes Amount Used/How Often: has used tobacco products in the last 30 days Have You Smoked in the Last Year: Yes - Pt uses mariuana wrapped around tobacco Review of Systems Negative: Fever Positive: Abdominal Pain, Vomiting, Diarrhea, Nausea, Other - Positive: hematemesis All Other Systems Reviewed And Are Negative: Yes Physical Exam - Summary Physical Exam Summary: Appearance: The patient is well-nourished in no acute distress and in no acute pain. Skin: The skin is warm and dry and skin color reflects adequate perfusion. HEENT: The head is normocephalic and atraumatic. The pupils are equal and reactive. The conjunctivae are clear and without drainage. Nares are patent and without drainage. Mouth reveals moist mucous membranes and the throat is without erythema and exudate. The external ears are intact. The ear canals are patent and without drainage. The tympanic membranes are intact. Neck: The neck is supple with full range of motion and non-tender. There are no carotid bruits. There is no neck vein distension. Respiratory: Chest is non-tender. Lungs are clear to auscultation and breath sounds are symmetrical and equal. Cardiovascular: Heart is regular rate and rhythm. There is no murmur or rub auscultated. There is no peripheral edema and pulses are symmetrical and equal. Abdomen: The abdomen is soft and non-tender. There are normal bowel sounds heard in all four quadrants and there is no organomegaly palpated. Musculoskeletal: There is no back tenderness noted. Extremities are non-tender with full range of motion. There is good capillary refill. There is no peripheral edema or calf tenderness elicited. Neurological: Patient is alert and oriented to person, place and time. The patient has symmetrical motor strength in all four extremities. Cranial nerves are grossly intact. Deep tendon reflexes are symmetrical and equal in all four extremities. Psychiatric: The patient has an appropriate affect and does not exhibit any anxiety or depression. Triage Information Reviewed: Yes Vital Signs On Initial Exam: Initial Vitals Temp Pulse Resp BP Pulse Ox 98 F 74 16 146/86 99 03/18/18 15:26 03/18/18 15:26 03/18/18 15:26 03/18/18 15:26 03/18/18 15:26 Vital Signs Reviewed: Yes Diagnostics - Vital Signs Vital Signs Temp Pulse Resp BP Pulse Ox 03/18/18 15:26 98 F 74 16 146/86 99 - Laboratory Result Diagrams: 03/18/18 16:24 03/18/18 16:24 Lab Statement: Any lab studies that have been ordered have been reviewed, and results considered in the medical decision making process. Re-Evaluation - Re-Evaluation First Eval Re-Evaluation Time: 17:55 Change: Unchanged Comment: Patient is ready for discharge GIGU Course/Dx - Course Course Of Treatment: Mr. Samuel Perez presented to the emergency department with another episode of intractable nausea and vomiting. He has seen some blood in his vomitus this time. He has a diagnosis of cyclic vomiting syndrome and does smoke marijuana. He was vomiting and retching on arrival to the emergency department but his vitals are stable. He was given IV fluids as well as IV Ativan and Reglan on arrival. His labs returned unremarkable and he did improve. Chest at discharge she vomited again and was given Zofran ODT as his IV had already been taken out. After a short interval he was able to ambulate out of the department. - Diagnoses Provider Diagnoses: Cyclic vomiting syndrome Discharge - Sign-Out/Discharge Documenting (check all that apply): Patient Departure - DC - Discharge Plan Condition: Stable Disposition: HOME Referrals: [facility] [place] [facility]IAN REFERRAL [Outside] (2-3 days) Additional Instructions: Follow up with your PCP in 2-3 days. Return to the ED for any new or worsening symptoms. - Billing Disposition and Condition Condition: STABLE Disposition: Home - Attestation Statements Document Initiated by Scribe: Yes Documenting Scribe: Nelson Bolivar Provider For Whom Pattie is Documenting (Include Credential): Too Zuluaga MD Scribe Attestation: Nelson Evans, scribed for Too Zuluaga MD on 03/18/18 at 1844. Scribe Documentation Reviewed: Yes Provider Attestation: The documentation as recorded by the Nelson willett accurately reflects the service I personally performed and the decisions made by me, Too Zuluaga MD Status of Scribe Document: Viewed
[2018-03-18 16:38] LABS: ABS Basophils 0.1 10^3/ul (0-0.2); ABS Eosinophils 0 10^3/ul (0-0.6); ABS Lymphocytes 0.6 10^3/ul (1.0-4.8); ABS Monocytes 0.4 10^3/ul (0-0.8); ABS Neutrophils 9.7 10^3/ul (1.5-7.7); ABS Nucleated RBC 0 10^3/ul; Eosinophil % 0.1 %; Hematocrit 45 % (42-52); Hemoglobin 15.3 g/dl (14.0-18.0); Lymphocyte % 5.3 %; Mean Corpuscular HGB Conc 34 g/dl (31-36); Mean Corpuscular Hemoglobin 30 pg (27-31); Mean Corpuscular Volume 88 fL (80-94); Nucleated Red Blood Cells % 0.1; Platelet Count 245 10^3/ul (150-450); Red Blood Count 5.16 10^6/ul (4.00-5.40); Red Cell Distribution Width 13 % (10.5-15); White Blood Count 10.7 10^3/ul (3.5-10.8)
[2018-03-18 16:58] LABS: Albumin 4.5 g/dL (3.2-5.2); Albumin/Globulin Ratio 1.5 (1-3); BUN/Creatinine Ratio 12.1 (8-20); C Reactive Protein 12.34 mg/L (<8.01); Calcium 10.2 mg/dL (8.6-10.3); EGFR Non-African American 83.5 (>60); Total Bilirubin 0.9 mg/dL (0.2-1.0); Total Protein 7.5 g/dL (6.4-8.9)
[2018-03-18 18:03] VITALS: BP 142/91
[2018-03-18] MEDS ORDERED: Ondansetron ODT TAB* 4 MG PO ONE (18:21)
[2018-03-18] MEDS ORDERED: Ondansetron ODT TAB* 4 MG ONE (18:22)
== END 2018-03-18 18:02 | disposition home or self-care (01) ==
LOC: ED 15:23
DX: G43.A0 Cyclical vomiting, in migraine, not intractable (principal)
CPT/HCPCS: 36415; 80053; 83605; 83690; 85025; 86140; 96361; 96374; 96375; 99283; A9270-GY; J2060; J2765

== ENCOUNTER 2019-04-06 22:19 | Emergency (ER) | payer SELFPAY ==
--- NOTE | 2019-04-07 01:28 | ED ---
Throat Pain/Nasal Congestion - HPI Summary HPI Summary: 21 year old male presents with dental pain for the past couple days. He states that he bite into something hard a couple days ago and it caused intense pain. He it is worse when he eats anything hot or cold. Also worse when wind hits it. He denies any known chipped tooth. Denies any fevers. pain radiates up his jaw. Has been taking Tylenol ibuprofen with minimal relief. Has been trying orogel on the area. He denies any history of dental infections. Has no medical conditions. - History of Current Complaint Chief Complaint: EDDentalPain Time Seen by Provider: 04/07/19 01:13 - Allergies/Home Medications Allergies/Adverse Reactions: Allergies Allergy/AdvReac Type Severity Reaction Status Date / Time morphine Allergy Hives Verified 04/06/19 22:27 PMH/Surg Hx/FS Hx/Imm Hx Endocrine/Hematology History: Denies: Hx Anticoagulant Therapy, Hx Blood Disorders, Hx Diabetes, Hx Thyroid Disease, Hx Unexplained Bleeding Cardiovascular History: Denies: Hx Congestive Heart Failure, Hx Hypertension Respiratory History: Reports: Hx Asthma - childhood that has resolved Denies: Hx Chronic Obstructive Pulmonary Disease (COPD) GI History: Denies: Hx Ulcer History: Denies: Hx Renal Disease Musculoskeletal History: Denies: Hx Arthritis, Hx Back Problems Sensory History: Denies: Hx Contacts or Glasses, Hx Hearing Aid Opthamlomology History: Denies: Hx Contacts or Glasses Neurological History: Reports: Other Neuro Impairments/Disorders - TBI twice, 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 Psychiatric History: Reports: Hx Anxiety, Hx Post Traumatic Stress Disorder Denies: Hx Eating Disorder, Hx of Violent Episodes Against Others - Surgical History Surgery Procedure, Year, and Place: MENISCUS SURGERY, HAND SURGERY - Immunization History Date of Tetanus Vaccine: Unk Date of Influenza Vaccine: Unk Infectious Disease History: No Infectious Disease History: Denies: Hx Hepatitis, Hx Human Immunodeficiency Virus (HIV), History Other Infectious Disease, Traveled Outside the [place] in Last 30 Days - Family History Known Family History: Positive: Cardiac Disease, Hypertension, Diabetes - Social History Alcohol Use: Rare Hx Substance Use: Yes Substance Use Type: Reports: None Substance Use Comment - Amount & Last Used: occasional Hx Tobacco Use: Yes Smoking Status (MU): Former Smoker Type: Cigarettes Amount Used/How Often: has used tobacco products in the last 30 days Have You Smoked in the Last Year: Yes - Pt uses mariuana wrapped around tobacco Review of Systems Negative: Fever Positive: Dental Pain Negative: Chest Pain Negative: Shortness Of Breath All Other Systems Reviewed And Are Negative: Yes Physical Exam Triage Information Reviewed: Yes Vital Signs On Initial Exam: Initial Vitals Temp Pulse Resp BP Pulse Ox 99.4 F 90 16 158/100 98 04/06/19 22:24 04/06/19 22:24 04/06/19 22:24 04/06/19 22:24 04/06/19 22:24 Vital Signs Reviewed: Yes Appearance: Positive: Well-Appearing Skin: Positive: Warm, Dry Head/Face: Positive: Normal Head/Face Inspection Eyes: Positive: Normal, EOMI, [place], Conjunctiva Clear ENT: Positive: Normal ENT inspection, Pharynx normal, TMs normal Dental: Positive: Percussion Tenderness @ - 29. Negative: Abscess @ Respiratory/Lung Sounds: Positive: Clear to Auscultation, Breath Sounds Present Cardiovascular: Positive: Normal, RRR Musculoskeletal: Positive: Normal Neurological: Positive: Normal Psychiatric: Positive: Normal Procedures - Sedation Patient Received Moderate/Deep Sedation with Procedure: No Diagnostics - Vital Signs Vital Signs Temp Pulse Resp BP Pulse Ox 04/07/19 00:44 99.3 F 55 16 147/95 100 04/06/19 22:24 99.4 F 90 16 158/100 98 - Laboratory Lab Statement: Any lab studies that have been ordered have been reviewed, and results considered in the medical decision making process. EENT Course/Dx - Course Course Of Treatment: 21 year old male presents with dental pain for the past couple days. He states that he bite into something hard a couple days ago and it caused intense pain. He it is worse when he eats anything hot or cold. Also worse when wind hits it. He denies any known chipped tooth. Denies any fevers. pain radiates up his jaw. Has been taking Tylenol ibuprofen with minimal relief. Has been trying orogel on the area. He denies any history of dental infections. Has no medical conditions. On exam has pain over tooth 29. No abscess noted. will treat potential dental infection with penicillin. Told that likely is a nerve root problem so needs to see a dentist. Patient understands and agrees with the plan. - Differential Diagnoses Differential Diagnoses: Dental Abscess, Dental Caries, Fractured Tooth - Diagnoses Provider Diagnoses: Dental infection Discharge ED - Sign-Out/Discharge Documenting (check all that apply): Patient Departure - Discharge Plan Condition: Good Disposition: HOME Prescriptions: Penicillin VK TAB* [Penicillin VK 250 mg Tab*] 250 mg PO QID #27 tab Patient Education Materials: Toothache (ED) Referrals: Bria Godinez DO [Primary Care Provider] - Additional Instructions: Take antibiotics: 4 times a day for 7 days, first dose given in ED Use ibuprofen or tyenlol every 6 hours Avoid hard, crunchy food until seen by dentist Follow up with dentist as soon as possible Return to ED if develop any new or worsening symptoms - Billing Disposition and Condition Condition: GOOD Disposition: Home Images - Images Dental: 1 - pain
[2019-04-07] MEDS: Penicillin VK TAB* 250 MG PO ONE (01:37)
[2019-04-07 01:41] VITALS: BP 136/87
== END 2019-04-07 01:40 | disposition home or self-care (01) ==
LOC: ED 22:19
DX: K04.7 Periapical abscess without sinus (principal); F41.9 Anxiety disorder, unspecified; F43.10 Post-traumatic stress disorder, unspecified; Z87.891 Personal history of nicotine dependence; Z88.5 Allergy status to narcotic agent
CPT/HCPCS: 99282; A9270-GY